=== PATIENT | female | born 1960 | race Caucasian/White ===

== ENCOUNTER 2016-10-18 06:36 | Emergency (ER) | payer OTHER ==
[2016-10-18 07:50] LABS: BASOPHIL 1.2 % (0-2); EOSINOPHIL 1.2 % (0-5); HCT 41.4 % (37.0-47.0); HGB 14.2 g/dl (12.5-16.0); LYMPHOCYTE 29.8 % (15-48); MCH 29.6 pg (25.0-31.0); MCHC 34.3 g/dL (32.0-36.0); MCV 86.3 fL (78.0-100.0); MONOCYTE 9.5 % (0-12); MPV 10.1 fL (6.0-9.5); NEUTROPHIL 58.3 % (41-80); PLT 220 K/uL (150-400); RDW 12.2 % (11.5-14.0)
[2016-10-18 07:51] LABS: WBC 2.5 K/uL (4.0-10.5)
[2016-10-18 08:09] LABS: ALBUMIN 4.3 g/dL (3.5-5.0); BILIRUBIN - TOTAL 0.4 mg/dL (0.1-1.0); CREATININE 0.6 mg/dL (0.5-1.0); GLOBULIN (CALCULATION) 2.1 g/dL (2.2-4.2); POTASSIUM 3.3 mmol/L (3.5-5.1); TOTAL PROTEIN 6.4 g/dL (6.4-8.3)
== END 2016-10-18 09:07 | disposition home or self-care (01) ==
LOC: FER 06:36
PROVIDERS: Emergency Medicine
DX: J45.909 Unspecified asthma, uncomplicated (principal); K21.9 Gastro-esophageal reflux disease without esophagitis; I10 Essential (primary) hypertension; R19.7 Diarrhea, unspecified; Z88.5 Allergy status to narcotic agent; Z79.899 Other long term (current) drug therapy
CPT/HCPCS: 36415; 74022; 80053; 83690; 85025; 94640; 94664; J2930

== ENCOUNTER 2021-08-27 14:53 | Emergency (ER) | payer OTHER ==
[~2021-08-27 14:53] MED LIST: FLEXERIL10 MG PO; IBUPROFEN800 MG PO
[2021-08-27 17:24] LABS: BASOPHIL 0.9 % (0-2); EOSINOPHIL 1.2 % (0-5); HCT 43.7 % (37.0-47.0); HGB 14.5 g/dl (12.5-16.0); LYMPHOCYTE 20.9 % (15-48); MCH 29.2 pg (25.0-31.0); MCHC 33.2 g/dL (32.0-36.0); MCV 88.1 fL (78.0-100.0); MONOCYTE 6.5 % (0-12); MPV 10.2 fL (6.0-9.5); NEUTROPHIL 70.1 % (41-80); NRBC 0; PLT 329 K/uL (150-400); RBC 4.96 M/uL (4.20-5.40); RDW 12.1 % (11.5-14.0); WBC 5.7 K/uL (4.0-10.5)
[2021-08-27 17:26] LABS: BILIRUBIN NEGATIVE (NEGATIVE); BLOOD TRACE-INTACT Ery/uL (NEGATIVE); CLARITY CLEAR (CLEAR); COLOR YELLOW (YELLOW); GLUCOSE (U) NORMAL (NORMAL); LEUKOCYTES 1+ Leu/uL (NEGATIVE); NITRITE NEGATIVE (NEGATIVE); PROTEIN NEGATIVE (NEGATIVE); UROBILINOGEN 0.2 mg/dL (0.2-1.0)
[2021-08-27 17:35] LABS: ALBUMIN 4.1 g/dL (3.4-5.0); BILIRUBIN - TOTAL 0.4 mg/dL (0.2-1.0); BUN/CREAT RATIO (CALC) 23.8 RATIO; CREATININE 0.42 mg/dL (0.51-0.95); GLOBULIN (CALCULATION) 3.2 g/dL; POTASSIUM 3.8 mmol/L (3.5-5.1); TOTAL PROTEIN 7.3 g/dL (6.4-8.2)
[2021-08-27 17:56] LABS: BACTERIA 1+
[2021-08-27] MEDS ORDERED: VIBRAMYCIN100 MG PO (18:23)
[2021-08-27] MEDS ORDERED: PREDNISONE 20MG20 MG PO (18:24)
[2021-08-27] MEDS ORDERED: G TUSSIN AC LI118 ML PO (18:31)
== END 2021-08-27 19:11 | disposition home or self-care (01) ==
LOC: FER 14:53
PROVIDERS: Internal Medicine
DX: U07.1 COVID-19 (principal); N39.0 Urinary tract infection, site not specified; I10 Essential (primary) hypertension; Z88.5 Allergy status to narcotic agent
CPT/HCPCS: 36415; 71045; 80053; 81001; 84145; 85025; 87076; 87088; 87186; J1100; J7030